=== PATIENT | male | born 1960 | race African-American/Black ===

== ENCOUNTER 2016-06-08 15:31 | Inpatient (IN) | payer MEDICAID, OTHER ==
[~2016-06-08] VITALS: Ht 182.9 cm; Wt 99.8 kg
[2016-06-08] MEDS ORDERED: IV NS 0.9% 1,000 ML ONE (15:47)
[2016-06-08] MEDS ORDERED: IV SET PRIMARY PUMP SET 1 EA INFUS.SET MC ONE ×2 (15:47→17:33)
[2016-06-08 15:56] LABS: BASOPHILS # (AUTO) 0.3 /CMM (0.0-0.2); BASOPHILS % (AUTO) 2.9 % (0.0-2.0); DIFF TOTAL % 100 %; EOSINOPHILS # (AUTO) 0.2 /CMM (0.0-0.7); EOSINOPHILS % (AUTO) 1.7 % (0.0-6.0); HEMATOCRIT 56 % (39-51); HEMOGLOBIN 15.3 g/dL (13.5-17.5); LYMPHOCYTES # (AUTO) 1.3 /CMM (0.8-4.8); LYMPHOCYTES % (AUTO) 11.4 % (20.0-44.0); MEAN CORPUSCULAR HEMOGLOBIN 22 PG (26.0-33.0); MEAN CORPUSCULAR HGB CONC 27 g/dl (31.0-36.0); MEAN CORPUSCULAR VOLUME 82 fL (80-96); MONOCYTES # (AUTO) 1.2 /CMM (0.1-1.30); MONOCYTES % (AUTO) 10.5 % (2.0-12.0); NEUTROPHILS # (AUTO) 8.3 /CMM (1.8-8.9); NEUTROPHILS % (AUTO) 73.5 % (43.0-81.0); PLATELET COUNT (AUTO) 266 /CMM (150-450); RED BLOOD CELL COUNT(AUTO) 6.83 MIL/uL (4.5-6.0); WHITE BLOOD COUNT (AUTO) 11.3 K/uL (4.3-11.0)
[2016-06-08] MEDS ORDERED: IV NS 0.9% 1,000 ML BAG IV ONE (16:00)
[2016-06-08 16:07] LABS: ANION GAP 15 (5-14); CARBON DIOXIDE 21 mmol/L (21-32); CHLORIDE 105 mmol/L (98-107); CREATININE 2.2 mg/dL (0.6-1.3); GFR 38 mL/min (>60); GLUCOSE 108 mg/dL (74-106); POTASSIUM 4.6 mmol/L (3.5-5.1); SODIUM SERUM 137 mmol/L (136-145); UREA NITROGEN, BLOOD 50 mg/dL (7-18)
[2016-06-08 16:11] LABS: PROTHROMBIN TIME 10.5 SECS (9.5-12.7)
[2016-06-08 16:12] LABS: ALANINE AMINOTRANSFERASE 49 U/L (12-78); ALBUMIN 3.1 g/dL (3.4-5.0); ASPARTATE AMINOTRANSFERASE 23 U/L (15-37); BILIRUBIN,DIRECT 0.1 mg/dL (0.0-0.2); BILIRUBIN,TOTAL 0.4 mg/dL (0.2-1.0); INDIRECT BILIRUBIN 0.3 mg/dL (0.0-1.1); TOTAL PROTEIN, SERUM 6.6 g/dL (6.4-8.2)
[2016-06-08 16:14] LABS: TROPONIN I < 0.017 ng/mL (0.00-0.056)
[2016-06-08 16:34] LABS: LACTIC ACID 2.3 mmol/L (0.4-2.0)
[2016-06-08 16:52] LABS: *LACTIC ACID REFLEX FLAG YES
[2016-06-08] MEDS ORDERED: LISI40TA4 PO (17:16)
[2016-06-08] MEDS ORDERED: HYDR-548 PO (17:16)
[2016-06-08] MEDS ORDERED: HYDR100T27 PO (17:16)
[2016-06-08] MEDS ORDERED: NIFE90TA37 PO (17:16)
[2016-06-08] MEDS ORDERED: HYDR50TA3 PO (17:16)
[2016-06-08] MEDS ORDERED: QUET400T PO (17:16)
[2016-06-08] MEDS ORDERED: SPIR25TA4 PO (17:16)
[2016-06-08] MEDS ORDERED: ALPR2TAB2 PO (17:16)
[2016-06-08] MEDS ORDERED: IV LR 1000 ML 1,000 ML IV ONE (17:30)
[2016-06-08] MEDS ORDERED: MORPHINE SULFATE INJ 4 MG/ML DISP.SYRIN IV ONE (17:30)
[2016-06-08] MEDS ORDERED: MORPHINE SULFATE INJ 4 MG/ML DISP.SYRIN ONE (17:32)
[2016-06-08] MEDS ORDERED: IV LR 1,000 ML IV ONE (17:33)
[2016-06-08] MEDS ORDERED: HYDROCODONE/APAP 5/325MG 1 EACH TABLET PO PRN (18:00)
[2016-06-08] MEDS ORDERED: Z GUARD REMEDY 2 OZ OINT TP PRN (18:00)
[2016-06-08] MEDS ORDERED: ZOLPIDEM TARTRATE 5 MG TABLET PO PRN (18:00)
[2016-06-08] MEDS ORDERED: MAGNESIUM HYDROXIDE 30 ML UDC PO PRN (18:00)
[2016-06-08] MEDS ORDERED: ACETAMINOPHEN 325 MG TABLET PO PRN (18:00)
[2016-06-08] MEDS ORDERED: MAG HYDROX/AL HYDROX/SIMETH 30 ML UDC PO PRN (18:00)
[2016-06-08 18:02] VITALS: BP 120/65
[2016-06-08 19:51] VITALS: BP 129/76
[2016-06-08 20:00] VITALS: BP 129/76
[2016-06-08] MEDS ORDERED: HYDROCODONE/APAP 10/325MG 1 EA TABLET ONE (21:56)
[2016-06-08] MEDS ORDERED: HYDROCODONE/APAP 10/325MG 1 EA TABLET PO PRN (22:00)
[2016-06-08] MEDS: QUETIAPINE FUMARATE 100 MG TABLET PO SCH (22:05)
[2016-06-08] MEDS: HYDROCODONE/APAP 10/325MG 1 EA TABLET PO PRN (22:06)
[2016-06-08] MEDS: IV NS 0.9% 1,000 ML IV PRN (22:09)
[2016-06-09] VITALS (7 sets, daily range): BP systolic 106–146; BP diastolic 66–78
[2016-06-09 06:52] LABS: BASOPHILS % (AUTO) 0.2 % (0.0-2.0); DIFF TOTAL % 100 %; EOSINOPHILS # (AUTO) 0.2 /CMM (0.0-0.7); EOSINOPHILS % (AUTO) 2.3 % (0.0-6.0); HEMATOCRIT 51 % (39-51); HEMOGLOBIN 16.4 g/dL (13.5-17.5); LYMPHOCYTES # (AUTO) 2.4 /CMM (0.8-4.8); LYMPHOCYTES % (AUTO) 33.5 % (20.0-44.0); MEAN CORPUSCULAR HEMOGLOBIN 26 PG (26.0-33.0); MEAN CORPUSCULAR HGB CONC 32 g/dl (31.0-36.0); MEAN CORPUSCULAR VOLUME 81 fL (80-96); MONOCYTES # (AUTO) 0.8 /CMM (0.1-1.30); MONOCYTES % (AUTO) 10.6 % (2.0-12.0); NEUTROPHILS # (AUTO) 3.9 /CMM (1.8-8.9); NEUTROPHILS % (AUTO) 53.4 % (43.0-81.0); PLATELET COUNT (AUTO) 320 /CMM (150-450); RED BLOOD CELL COUNT(AUTO) 6.27 MIL/uL (4.5-6.0); WHITE BLOOD COUNT (AUTO) 7.3 K/uL (4.3-11.0)
[2016-06-09] MEDS: HYDROCODONE/APAP 10/325MG 1 EA TABLET PO PRN ×3 (07:07→20:13)
[2016-06-09 07:12] LABS: CALCIUM, SERUM 8.7 mg/dL (8.5-10.1); CREATININE 1.4 mg/dL (0.6-1.3); POTASSIUM 4.4 mmol/L (3.5-5.1)
[2016-06-09] MEDS: PANTOPRAZOLE 40 MG TABLET.DR PO SCH (09:44)
[2016-06-09] MEDS: ALPRAZOLAM 1 MG TABLET PO SCH ×2 (09:44→17:17)
[2016-06-09] MEDS: IV NS 0.9% 1,000 ML IV PRN (14:41)
[2016-06-09] MEDS: QUETIAPINE FUMARATE 100 MG TABLET PO SCH (21:31)
[2016-06-09] MEDS: ONDANSETRON HCL/PF 4 MG/2 ML VIAL IVP PRN (21:31)
[2016-06-10] MEDS: HYDROCODONE/APAP 10/325MG 1 EA TABLET PO PRN ×3 (06:10→20:40)
[2016-06-10] MEDS: ONDANSETRON HCL/PF 4 MG/2 ML VIAL IVP PRN ×2 (06:10→12:02)
[2016-06-10 08:00] VITALS: BP 121/74
[2016-06-10] MEDS: ALPRAZOLAM 1 MG TABLET PO SCH ×2 (08:22→17:07)
[2016-06-10] MEDS: PANTOPRAZOLE 40 MG TABLET.DR PO SCH (08:23)
[2016-06-10 09:32] VITALS: BP 121/74
[2016-06-10 13:24] LABS: BASOPHILS % (AUTO) 0.2 % (0.0-2.0); DIFF TOTAL % 100 %; EOSINOPHILS # (AUTO) 0.2 /CMM (0.0-0.7); EOSINOPHILS % (AUTO) 1.9 % (0.0-6.0); HEMATOCRIT 51 % (39-51); HEMOGLOBIN 16.4 g/dL (13.5-17.5); LYMPHOCYTES # (AUTO) 2.2 /CMM (0.8-4.8); LYMPHOCYTES % (AUTO) 22.2 % (20.0-44.0); MEAN CORPUSCULAR HEMOGLOBIN 26 PG (26.0-33.0); MEAN CORPUSCULAR HGB CONC 32 g/dl (31.0-36.0); MEAN CORPUSCULAR VOLUME 81 fL (80-96); MONOCYTES # (AUTO) 1.2 /CMM (0.1-1.30); MONOCYTES % (AUTO) 12.6 % (2.0-12.0); NEUTROPHILS # (AUTO) 6.2 /CMM (1.8-8.9); NEUTROPHILS % (AUTO) 63.1 % (43.0-81.0); PLATELET COUNT (AUTO) 304 /CMM (150-450); WHITE BLOOD COUNT (AUTO) 9.9 K/uL (4.3-11.0)
[2016-06-10 13:32] LABS: CALCIUM, SERUM 8.7 mg/dL (8.5-10.1); CREATININE 1.3 mg/dL (0.6-1.3); POTASSIUM 4.3 mmol/L (3.5-5.1)
[2016-06-10 16:00] VITALS: BP 119/65
[2016-06-10 17:08] VITALS: BP 119/65
[2016-06-10 20:00] VITALS: BP 129/80
[2016-06-10] MEDS: QUETIAPINE FUMARATE 100 MG TABLET PO SCH (21:51)
[2016-06-10] MEDS: IV NS 0.9% 1,000 ML IV PRN (22:00)
[2016-06-11] MEDS: HYDROCODONE/APAP 10/325MG 1 EA TABLET PO PRN ×2 (03:21→13:57)
[2016-06-11 06:54] LABS: BASOPHILS % (AUTO) 0.2 % (0.0-2.0); DIFF TOTAL % 100 %; EOSINOPHILS # (AUTO) 0.3 /CMM (0.0-0.7); EOSINOPHILS % (AUTO) 3.9 % (0.0-6.0); HEMATOCRIT 47 % (39-51); HEMOGLOBIN 14.8 g/dL (13.5-17.5); LYMPHOCYTES # (AUTO) 2.4 /CMM (0.8-4.8); LYMPHOCYTES % (AUTO) 37.5 % (20.0-44.0); MEAN CORPUSCULAR HEMOGLOBIN 26 PG (26.0-33.0); MEAN CORPUSCULAR HGB CONC 32 g/dl (31.0-36.0); MEAN CORPUSCULAR VOLUME 82 fL (80-96); MONOCYTES # (AUTO) 0.9 /CMM (0.1-1.30); MONOCYTES % (AUTO) 13.6 % (2.0-12.0); NEUTROPHILS # (AUTO) 2.9 /CMM (1.8-8.9); NEUTROPHILS % (AUTO) 44.8 % (43.0-81.0); PLATELET COUNT (AUTO) 280 /CMM (150-450); RED BLOOD CELL COUNT(AUTO) 5.71 MIL/uL (4.5-6.0); WHITE BLOOD COUNT (AUTO) 6.4 K/uL (4.3-11.0)
[2016-06-11 08:00] VITALS: BP 126/82
[2016-06-11] MEDS: ALPRAZOLAM 1 MG TABLET PO SCH (08:06)
[2016-06-11] MEDS: PANTOPRAZOLE 40 MG TABLET.DR PO SCH (08:06)
[2016-06-11 09:05] LABS: CALCIUM, SERUM 8.7 mg/dL (8.5-10.1); CREATININE 1.2 mg/dL (0.6-1.3); POTASSIUM 3.9 mmol/L (3.5-5.1)
[2016-06-11 16:11] VITALS: BP 138/86
== END 2016-06-11 17:30 | disposition home or self-care (01) | DRG 249 ==
LOC: ER 15:33 → MEDSG2 18:10
PROVIDERS: ADMIT Internal Medicine; ATTEND Internal Medicine
DX: A08.4 Viral intestinal infection, unspecified (principal); N17.0 Acute kidney failure with tubular necrosis; E87.2 Acidosis; E86.0 Dehydration; F32.9 Major depressive disorder, single episode, unspecified; K64.9 Unspecified hemorrhoids; F17.200 Nicotine dependence, unspecified, uncomplicated; I10 Essential (primary) hypertension; F41.9 Anxiety disorder, unspecified; M54.5 Low back pain; G89.29 Other chronic pain; F17.210 Nicotine dependence, cigarettes, uncomplicated; I71.9 Aortic aneurysm of unspecified site, without rupture
CPT/HCPCS: 36415; 80048-TC; 80076-TC; 83605-TC; 83690-TC; 83735-TC; 84100-TC; 84484-TC; 85025-TC; 85730-TC; 87040-TC; 87081-TC; 87400; A4606; J2270; J2405; J7030; J7120; Z7610